=== PATIENT | male | born 1985 | race Caucasian/White ===

== ENCOUNTER 2017-03-02 18:49 | Emergency (ER) | payer SELFPAY ==
[~2017-03-02] VITALS: Ht 170.2 cm; Wt 80.0 kg
[2017-03-02 18:52] VITALS: Ht 170.2 cm; Wt 80.0 kg
[2017-03-02] MEDS ORDERED: KETOROLAC 60 MG INJ IM STA (20:19)
[2017-03-02] MEDS ORDERED: DIAZEPAM 5 MG TAB PO ONE (20:30)
--- NOTE | 2017-03-02 20:51 | ERD ---
ER Documentation Chief Complaint Chief Complaint LOW BACK PAIN DUE TO INJURY AT GYM, "HEARD A POP", DENIES LEG PAIN HPI This is a 31-year-old male presenting to the emergency department complaining of moderate bilateral lumbar back pain status post lifting a 300 pounds of heavy weights at the gym earlier today. Patient states that he has pain with range of motion. He denies taking any medications. He denies any saddle anesthesia, bowel or bladder incontinence ROS All systems reviewed and are negative except as per history of present illness. Allergies Allergies: Coded Allergies: No Known Allergy (Unverified , 03/02/17) PMhx/Soc Medical and Surgical Hx: pt denies Medical Hx, pt denies Surgical Hx Hx Alcohol Use: Yes Hx Substance Use: No Hx Tobacco Use: No Smoking Status: Never smoker Physical Exam Vitals Vital Signs Date Time Temp Pulse Resp B/P Pulse Ox O2 Delivery O2 Flow Rate FiO2 03/02/17 18:52 98.1 67 20 121/63 98 Physical Exam GENERAL: WD/WN, in no apparent distress, non-toxic appearing HENT: NC/AT EYES: Conjunctiva normal NECK: Supple PULM: Normal labored breathing CV: Good capillary refill GI: Non-distended, no guarding BACK: no deformities noted, normal spinal curvature, TTP on lumbar region laterally, patient was tender in the paraspinal lumbar muscles EXT: No clubbing, cyanosis, or edema NEURO: Moves on all fours, sensation intact, normal gait SKIN: intact PSYCH: Normal mood Results 24 hrs Current Medications Medications (Trade) Dose Ordered Sig/Amina Route PRN Reason Start Time Stop Time Status Last Admin Dose Admin Ketorolac Tromethamine (Toradol) 60 mg ONCE STAT IM 03/02/17 20:19 03/02/17 20:21 DC 03/02/17 20:37 Diazepam (Valium) 10 mg ONCE ONCE PO 03/02/17 20:30 03/02/17 20:31 DC Procedures/MDM This is a 31-year-old male presenting to the emergency department with low back pain status post lifting heavy weights likely due to a strain. There was no evidence of vertebral fracture or subluxation on x-ray. There is no evidence of cauda equina. Patient is neurovascularly intact and stable to be discharged home to follow-up with primary care physician to get a referral to see a physical therapist. In the ED, patient was given Toradol and Valium. Prescription for ibuprofen and Flexeril was given. Discussed return to the ER for any worsening signs or symptoms. Patient understands and agrees with this plan Departure Diagnosis: Primary Impression: Lumbar strain Condition: Stable KRISTEN MATHEWS PA-C Mar 02, 2017 20:51
[2017-03-02] MEDS ORDERED: CYCL-319 PO (20:52)
[2017-03-02] MEDS ORDERED: IBUP-1542 PO (20:52)
--- NOTE | 2017-03-02 21:38 | RADRPT ---
PROCEDURE: XR Lumbar Spine. CLINICAL INDICATION: Low back pain. 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 There is straightening of normal lumbar lordosis. Alignment is intact. No acute fracture or disloc ation is seen. The vertebral body heights and disc spaces are preserved. No significant paraspinal soft tissue swelling is noted. IMPRESSION: 1. 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 If surgical intervention is considered, consider correlation with plain film radiographs of the thoracic spine for numbering system confirmation. 2. No acute fracture or dislocation. 3. Straightening of the normal lumbar lordosis. RPTAT: HH .Elise Chavez MD, Date Time Electronically viewed and signed by .Elise Chavez MD, on 03/02/2017 21:38 .N/
[2017-03-02 22:15] VITALS: BP 118/63; PULSE 68; RESP 18; TEMP 98.5
== END 2017-03-02 22:17 | disposition home or self-care (01) ==
LOC: FTE 18:49
DX: S39.012A Strain of muscle, fascia and tendon of lower back, initial encounter (principal); X50.0XXA Overexertion from strenuous movement or load, initial encounter; Y92.9 Unspecified place or not applicable
CPT/HCPCS: 72100; 96372; 99284; J1885